=== PATIENT | male | born 2005 | race Caucasian/White ===

== ENCOUNTER 2023-12-15 09:09 | Emergency (ER) | payer BC, SELFPAY ==
[2023-12-15 09:13] VITALS: BP 129/77; PULSE 112; RESP 18; TEMP 36.9; O2SAT 97
--- NOTE | 2023-12-15 09:29 | ED.GENADUL_ITS ---
Discharge Plan Disposition Patient Disposition: Home Condition: Stable Discharge Details Clinical Impression: Mononucleosis Primary Care Provider: [facility] Provider: Latosha Montes Home Meds and New Rx's Prescriptions: No Action No Known Home Meds Discharge Instructions Instructions: Mononucleosis Additional Instructions: You have been tested positive for mono. Usually this is symptomatic treatment. Gargle with warm salt water 3 times daily. Please take Tylenol or Ibuprofen with food every 4-6 hours as needed for pain and swelling. You may use the Magic mouthwash as directed. This does have a little bit of Benadryl in it. Do not participate in any contact sports for the next 4 weeks. Follow up with primary care provider in 3-5 days. Return to ED sooner if any worsening or concerns. Stand Alone Forms: Work Release Referrals: Primary Care Provider [Outside] - 1 week HPI General Mode of arrival: ambulatory . Date/Time Provider Initiated Documentation: 12/15/23 09:21 . Limitations to Documentation: no limitations . Information obtained by: patient, RN notes reviewed and old records reviewed . HPI Narrative: 17-year-old male presents to the ER with a chief complaint of sore throat and vomited approximately half a cup of blood this morning per patient report. He states for the last 2 days that his throat has been irritated. He denies any cough, fever or any other associated symptoms. He denies any drugs or alcohol, denies smoking. He is speaking in full sentences, voice is clear. Tonsils are 2+ bilaterally uvula slightly swollen positive exudate. Positive anterior cervical lymphadenopathy. Related Data Home Medications ?Medication ?Instructions ?Recorded ?Confirmed Unknown [No Known Home Meds] 12/15/23 12/15/23 Allergies Allergy/AdvReac Type Severity Reaction Status Date / Time No Known Allergies Allergy Unverified 12/15/23 09:16 General Stated Complaint: [facility] ADRIANA: 3 Review of Systems All systems reviewed & are unremarkable except as noted in HPI and below ENT Ears, Nose, Mouth, and Throat: Reports as per HPI and Reports sore throat Exam Narrative Exam Narrative: Constitutional: Alert and oriented x3. Appears stated age. Normal body habitus. Head: Normocephalic, no trauma. Eyes: Pupils PERRL, Red reflex noted, EOM's intact. Eyelids symmetrical without lesions, discharge, or swelling. ENT: See below Chest: RRR, Normal S1, S2, distal pulses intact. Resp: Lungs clear to auscultation bilaterally, no wheezes, rales, or rhonchi. Abdomen: Soft, non-distended, Normoactive bowel sounds all 4 quads. Musculoskeletal: Normal gait, Moves all 4 extremities without difficulty. Skin: No suspicious rashes or lesions. Capillary refill less than 2 sec. Neurologic: Cranial nerves II-XII intact. Alert and oriented x 3. Motor: No deficits noted. Sensory: Intact bilaterally all 4 extremities. Hematologic/Lymphatic: No ecchymosis, no lymphadenopathy. [facility] Head: normal to inspection Mouth: oral mucosae normal, lip normal and tongue normal Teeth and gingiva: dentition normal Throat: uvula midline, abnormal tonsil bilaterally erythema, exudates and hypertrophy 2+, posterior oropharynx abnormal erythema and exudates and uvular edema Neck Neck: normal visual inspection Lymphatic: lymphadenopathy Resp Effort & Inspection: normal respiratory effort and able to speak in complete sentences Auscultation: clear to auscultation bilaterally Cardio Rate: regular rate Rhythm: regular rhythm Heart Sounds: S1 normal and S2 normal Course Vital Signs Vital signs: Vital Signs Temperature 36.9 C 12/15/23 09:13 Pulse 112 H 12/15/23 09:13 Respiratory Rate 18 12/15/23 09:13 Blood Pressure 129/77 12/15/23 09:13 Pulse Oximetry 97 12/15/23 09:13 Temperature 36.9 C 12/15/23 09:13 Temperature Source Oral 12/15/23 09:13 Pulse 112 H 12/15/23 09:13 Respiratory Rate 18 12/15/23 09:13 Blood Pressure 129/77 12/15/23 09:13 Pulse Oximetry 97 12/15/23 09:13 Oxygen Delivery Method Room Air 12/15/23 09:13 Oxygen Flow Rate 0 12/15/23 09:13 Medical Decision Making 17-year-old male presents to the ER with a chief complaint of sore throat and vomited approximately half a cup of blood this morning per patient report. He states for the last 2 days that his throat has been irritated. He denies any cough, fever or any other associated symptoms. He denies any drugs or alcohol, denies smoking. He is speaking in full sentences, voice is clear. Tonsils are 2+ bilaterally uvula slightly swollen positive exudate. Positive anterior cervical lymphadenopathy. Differential diagnosis includes GBS throat, Viral illness, covid, [place] Fluvid swab, rapid strep, ordered. 10 mg p.o. dexamethasone ordered, Magic mouthwash. Augmentin Negative rapid strep however will treat due to clinical presentation. Fluvid is pending at this time. Labs ordered due to negative Strep, [place] screening ordered as well. CBC BMP monoscreen ordered. [place] is positive. Sodium 134. Patient given home care instructions and follow-up instructed to gargle with warm salt water 3 times daily. This text was generated using [employer] system, please disregard any oddities of phrase or misspellings. Medical Records Medical records reviewed: Yes I reviewed the patient's medical records. Lab Data Lab results reviewed: Yes I reviewed the patient's lab results. Labs: 12/15/23 10:18 Tonsil - Not Specified Group A Streptococcus Culture - Pending Laboratory Tests Range/Units 12/15/23 12/15/23 10:10 10:53 WBC (4.4-10.8) 10^3/uL 12.75 H RBC (4.36-5.78) 10^6/uL 5.75 Hgb (13.5-17.5) g/dL 16.1 Hct (40.0-50.0) % 47.5 MCV (80-95) fL 83 MCH (27.0-33.0) pg 28.0 MCHC (32.0-36.0) % 33.9 RDW (11.8-14.1) % 12.8 Plt Count (130-400) 10^3/uL 228 MPV (8.0-11.0) fL 9.3 Immature Gran % % 0.0 Neutrophils % % 21.0 Band Neutrophils % % 2 Lymphocytes % % 31.0 Atypical Lymphs % % 43 Monocytes % % 3.0 Eosinophils % % 0.0 Basophils % % 0.0 Nucleated RBC % (0.0-0.3) % 0.0 Absolute Neutrophils (1.2-6.7) 10^3/uL 2.93 Absolute Lymphocytes (1.2-3.4) 10^3/uL 9.44 H Absolute Monocytes (0.1-0.8) 10^3/uL 0.38 Absolute Eosinophils (0.0-0.7) 10^3/uL 0.00 Absolute Basophils (0.0-0.2) 10^3/uL 0.00 Sodium (136-145) mmol/L 134 L Potassium (3.5-5.1) mmol/L 3.7 Chloride (98-107) mmol/L 98 Carbon Dioxide (21.0-32.0) mmol/L 28.4 Anion Gap (3-11) mmol/L 7.6 BUN (7-18) mg/dL 16 Creatinine (0.70-1.30) mg/dL 0.9 Est GFR (CKD-EPI 2020) (mL/min/1.73m2) 126.17 Glucose (74-106) mg/dL 108 H Calcium (8.5-10.1) mg/dL 9.2 COVID-19 Source Nasopharynx SARS-CoV-2 (PCR) (Negative) Negative Monoscreen (Negative) POSITIVE A Influenza Type A (PCR) (Negative) Negative Influenza Type B (PCR) (Negative) Negative RSV (PCR) (Negative) Negative Quality:SDOH Health Related Social Needs: No Data to Display PFSH All Active Problems (Updated 12/15/23 @ 11:34 by Latosha Montes NP) Mononucleosis (Acute) Social History Smoking/Tobacco Use Status: Never Smoking risk assessment performed?: Yes Alcohol Intake: never Substance use type: marijuana Details: states he does not smoke marijuana any more. CAROLINARN, 12/15/23
[2023-12-15] MEDS: Dexamethasone 10 MG/ML VIAL PO (10:25)
[2023-12-15] MEDS: Amoxicillin 875/Clav. 125 TAB PO (10:25)
[2023-12-15] MEDS: Magic Mouthwash 119 ML BTL 10 ML MM (10:25)
[2023-12-15 10:27] VITALS: BP 129/77; PULSE 112; RESP 18; TEMP 36.9; O2SAT 97
[2023-12-15 10:55] LABS: COVID-19 PCR Negative (Negative); Influenza A PCR Negative (Negative); Influenza B PCR Negative (Negative); RSV PCR Negative (Negative)
[2023-12-15 10:56] LABS: Source Nasopharynx
[2023-12-15 11:09] LABS: Abs Immature Grans 0.15 10^3/uL (0.0-0.06); HCT 47.5 % (40.0-50.0); HGB 16.1 g/dL (13.5-17.5); MCHC 33.9 % (32.0-36.0); MCV 83 fL (80-95); MPV 9.3 fL (8.0-11.0); Platelet Count 228 10^3/uL (130-400); RBC 5.75 10^6/uL (4.36-5.78); RDW 12.8 % (11.8-14.1); RDW-SD 38.5 fL; WBC 12.75 10^3/uL (4.4-10.8)
[2023-12-15 11:23] LABS: Anion Gap 7.6 mmol/L (3-11); BUN 16 mg/dL (7-18); CO2 28.4 mmol/L (21.0-32.0); CREATININE 0.9 mg/dL (0.70-1.30); Calcium 9.2 mg/dL (8.5-10.1); Chloride 98 mmol/L (98-107); Estimated GFR 126.17 (mL/min/1.73m2); Glucose 108 mg/dL (74-106); Potassium 3.7 mmol/L (3.5-5.1); Sodium 134 mmol/L (136-145)
[2023-12-15 11:28] LABS: Mono Screening POSITIVE (Negative)
[2023-12-15 11:36] LABS: Absolute Lymphocyte Count 9.44 10^3/uL (1.2-3.4); Absolute Monocyte Count 0.38 10^3/uL (0.1-0.8); Absolute Neutrophil Count 2.93 10^3/uL (1.2-6.7); Atypical Lymphocytes % 43 %; Bands % 2 %
[2023-12-15 11:40] VITALS: BP 142/80; PULSE 99; RESP 18; O2SAT 97
== END 2023-12-15 11:42 | disposition home or self-care (01) ==
PROVIDERS: Emergency Provider Registered Nurse Emergency
DX: B27.90 Infectious mononucleosis, unspecified without complication (principal)
CPT/HCPCS: 36415; 80048; 87637; 87880; 99283; 85025; 86308; 87081; J1100